=== PATIENT | female | born 1950 | race Caucasian/White ===

== ENCOUNTER 2017-08-21 14:30 | Emergency (ER) | payer BC, OTHER ==
[2017-08-21 14:40] VITALS: BP 148/78; PULSE 79; TEMP 98; BMI 36.9
[2017-08-21] MEDS ORDERED: DIPHTH,PERTUSS(ACELL),TET 0.5 ML DISP.SYRIN IM ONE (15:10)
--- NOTE | 2017-08-21 15:12 | PDOC ---
History of Present Illness - General History Source: Patient <Jarret Suarez - Last Filed: 08/21/17 17:11> - General History Source: Patient Exam Limitations: No Limitations - History of Present Illness Initial Comments: 08/21/17 15:27 The patient is a 66 year old female, with no significant past medical history, who walks into the emergency department with her family, laceration on her right forehead s/p mechanical fall on the stairs. As per patient, she tripped on the stairs, fell, and cut her right forehead. She denies loss of consciousness. She denies recent fevers, chills, headache or dizziness. She denies recent nausea, vomit, diarrhea or constipation. She denies recent dysuria, frequency, urgency or hematuria. She denies recent chest pain or shortness of breath. Allergies: NKA Past surgical history: None reported. Social history: Nonsmoker. Denies EtOH use and recreational drug use. Primary Care Physician: Dr. Dain Villaseñor <Atilio Saldana - Last Filed: 08/21/17 17:24> - General Chief Complaint: Injury Stated Complaint: FALL, HEAD INJURY Time Seen by Provider: 08/21/17 14:33 Past History - Past Medical History COPD: No HTN: Yes - Surgical History Cholecystectomy: Yes - Suicide/Smoking/Psychosocial Hx Smoking History: Former smoker Have you smoked in the past 12 months: No Information on smoking cessation initiated: No Hx Alcohol Use: (social) <Jarret Suarez Hasmukh - Last Filed: 08/21/17 17:11> <Atilio Saldana - Last Filed: 08/21/17 17:24> - Past Medical History Allergies/Adverse Reactions: Allergies Allergy/AdvReac Type Severity Reaction Status Date / Time No Known Allergies Allergy Verified 08/21/17 14:33 Home Medications: Ambulatory Orders Amlodipine Besylate 10 mg PO DAILY 08/21/17 Losartan/Hydrochlorothiazide [Hyzaar 50-12.5 Tablet] each PO DAILY 08/21/17 Review of Systems - Review of Systems Able to Perform ROS?: Yes HEENTM: Yes: Other (Laceration of the right frontal region. ) <Atilio Saldana - Last Filed: 08/21/17 17:24> *Physical Exam - Vital Signs Last Vital Signs Temp Pulse Resp BP Pulse Ox 98 F 79 18 148/78 98 08/21/17 14:30 08/21/17 14:30 08/21/17 14:30 08/21/17 14:30 08/21/17 14:30 <Jarret Suarez - Last Filed: 08/21/17 17:11> - Vital Signs Last Vital Signs Temp Pulse Resp BP Pulse Ox 98 F 79 18 148/78 98 08/21/17 14:30 08/21/17 14:30 08/21/17 14:30 08/21/17 14:30 08/21/17 14:30 - Physical Exam General Appearance: Yes: Nourished, Appropriately Dressed HEENT: positive: EOMI, JAVIER, Normal ENT Inspection, Normal Voice, Other (2 inch laceration of the right frontal scalp.) Neck: positive: Supple Respiratory/Chest: positive: Normal Breath Sounds Cardiovascular: positive: Regular Rhythm, Regular Rate Gastrointestinal/Abdominal: positive: Normal Bowel Sounds Musculoskeletal: positive: Normal Inspection Extremity: positive: Normal Capillary Refill, Normal Inspection, Normal Range of Motion Integumentary: positive: Normal Color, Dry, Warm <Atilio Saldana - Last Filed: 08/21/17 17:24> Procedures - Laceration/Wound Repair Frontal Wound Length: 5.0 to 7.5 cm Wound Explored: clean, no foreign body present Wound's Depth, Shape: superficial Irrigated w/ Saline: Yes Betadine Prep: Yes Anesthesia: 1% Lidocaine Amount of Anesthetic (ccs): 10 Wound Debrided: minimal Wound Repaired With: Alexi Suture Size/Type: 6:0 Number of Sutures: 6 Layer Closure: No Sterile Dressing Applied: No Splint Applied: No Sling Applied: No <Atilio Saldana - Last Filed: 08/21/17 17:24> *DC/Admit/Observation/Transfer <Jarret Suarez - Last Filed: 08/21/17 17:11> - Attestations Scribe Attestion: 08/21/17 15:42 Documentation prepared by Atilio Saldana, acting as medical practice manager for Jarret Suarez MD. <Atilio Saldana - Last Filed: 08/21/17 17:24> Diagnosis at time of Disposition: Head trauma Qualifiers: Encounter type: initial encounter Qualified Code(s): S09.90XA - Unspecified injury of head, initial encounter Scalp laceration Qualifiers: Encounter type: initial encounter Qualified Code(s): S01.01XA - Laceration without foreign body of scalp, initial encounter - Discharge Dispostion Disposition: HOME Condition at time of disposition: Stable - Referrals Referrals: Dain Villaseñor MD [Primary Care Provider] - - Patient Instructions Printed Discharge Instructions: DI for Laceration Repair of the Scalp, DI for Closed Head Injury Additional Instructions: keep it clean, Bacitracin ointment Head trauma instructions, Alexi out in 10 days - Post Discharge Activity
== END 2017-08-21 17:20 | disposition home or self-care (01) ==
LOC: FER 14:30
PROC: 0HQ1XZZ Repair Face Skin, External Approach (ICD-10-PCS; principal; 2017-08-21)
DX: S01.81XA Laceration without foreign body of other part of head, initial encounter (principal); S09.90XA Unspecified injury of head, initial encounter; I10 Essential (primary) hypertension; Z87.891 Personal history of nicotine dependence; W10.9XXA Fall (on) (from) unspecified stairs and steps, initial encounter; Y93.89 Activity, other specified; Y92.9 Unspecified place or not applicable
CPT/HCPCS: 70450-TC; 90715; 99283-25